=== PATIENT | male | born 1950 | race Two or more races ===

== ENCOUNTER → 2016-09-04 | Outpatient (CLI) | payer MEDICARE, BC ==
--- NOTE | ~2016-09-04 | CT71 ---
[facility] A Service of [facility] RADIOLOGY TEXT RESULTS PATIENT: ANGEL MCINTYRE [facility] UN[facility] #: [id number] AGE: [address]: SUKHI MONTELONGO MD SEX: M ORDER DR: [id number] [facility] [address] [place], [place] [address] [id number] O MR#: [id number] Acc #: [id number] NAME: ANGEL MCINTYRE : 1950 SEX: M STUDY DATE/TIME: 09/04/2016 13:05 UNIT: [facility] ROOM: STUDY DESCRIPTION: CT Head Wo Contrast Attending Physician: Juan Diego Montelongo M.D. Referring Physician: Juan Diego Montelongo M.D. Ordering Physician: Juan Diego Montelongo M.D. Primary Care Physician: Juan Diego Montelongo M.D. MEDICAL IMAGING REPORT This report is preliminary unless electronic signature is present EXAM Head CT no contrast 09/04/2016 TECHNIQUE Axial unenhanced head CT. This CT exam was performed with one or more of the following radiation dose reduction techniques: automatic exposure control, adjustment of mA and/or kV according to patient size, and iterative reconstruction. 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 COMPARISON None. FINDINGS There is cerebral volume loss slightly greater than expected for age, but there is no hemorrhage or mass. There is minimal periventricular hypodensity but brain parenchymal density is otherwise normal. There is no hemorrhage, hydrocephalus, or extra-axial fluid collection. There are intracranial atherosclerotic vascular calcifications. The extracranial soft tissues, skull base, and calvarium are normal. IMPRESSION 1. Senescent changes including volume loss and mild nonspecific white matter change, volume loss perhaps slightly greater than expected for age, but no acute abnormality is seen. Dictated by... Marco A Salgado M.D. [facility] A Service [facility] RADIOLOGY TEXT RESULTS PATIENT: ANGEL MCINTYRE LOCATION: [facility] : 48 UNIT #: [id number] AGE: [address]: SUKHI MONTELONGO MD SEX: M ORDER DR: THIS IS AN ELECTRONICALLY VERIFIED REPORT Marco A Salgado M.D. at 09/05/2016 3:50 PM TEV/pavan TD: 09/05/2016 10:28 JOB #: [id number] MEDICAL IMAGING REPORT Page 1 of 1 COPY
== END | disposition home or self-care (01) ==
LOC: CCAT 12:32
DX: R41.3 Other amnesia (principal); R93.0 Abnormal findings on diagnostic imaging of skull and head, not elsewhere classified
CPT/HCPCS: 70450